=== PATIENT | female | born 1940 | race Caucasian/White ===

== ENCOUNTER 2018-11-20 10:42 | Inpatient (IN) | payer MEDICARE, OTHER | END 2018-11-21 15:25 | disposition home or self-care (01) | LOC: ER 10:42 → ED HOLD 14:09 → PCU 3S 15:39 | DX: I48.91 Unspecified atrial fibrillation (principal); I21.A1 Myocardial infarction type 2 ==

== ENCOUNTER 2019-10-19 00:01 | Emergency (ER) | payer MEDICARE ==
[~2019-10-19] VITALS: Ht 167.6 cm; Wt 92.7 kg
[~2019-10-19 00:01] MED LIST: ALPR0.5T9 PO; APIX5TAB3 PO; ASPI-1071 PO; ATOR20TA66 PO; CHOL10002 PO; COR3.125T PO; HYDR-3972 PO; MULT-955 PO; POTA8TAB8 PO
[2019-10-19] MEDS ORDERED: LIDOcaine 5% patch TP STA (01:36)
[2019-10-19] MEDS ORDERED: ketorolac tromethamine 15mg/ml inj. IM ONE (01:40)
[2019-10-19] MEDS ORDERED: LIDO700A32 TOP (01:44)
[2019-10-19 01:59] VITALS: BP 144/44
== END 2019-10-19 02:08 | disposition home or self-care (01) ==
LOC: ER 00:01
DX: S29.012A Strain of muscle and tendon of back wall of thorax, initial encounter (principal); Z79.82 Long term (current) use of aspirin; Z79.01 Long term (current) use of anticoagulants; Z79.899 Other long term (current) drug therapy; X58.XXXA Exposure to other specified factors, initial encounter; Y93.89 Activity, other specified; Y92.89 Other specified places as the place of occurrence of the external cause; Y99.8 Other external cause status
CPT/HCPCS: 96372; 99283; J1885